=== PATIENT | male | born 1955 | race Caucasian/White ===

== ENCOUNTER → 2023-03-13 10:12 | Outpatient (BNVA) | payer MEDICARE, OTHER, SELFPAY | PROVIDERS: Referring Provider Family Medicine; Visit Provider Dermatology | DX: C44.311 Basal cell carcinoma of skin of nose (principal); L57.0 Actinic keratosis; L81.4 Other melanin hyperpigmentation; L82.1 Other seborrheic keratosis | CPT/HCPCS: 11102; 17000; 99203 ==

== ENCOUNTER → 2023-04-01 09:34 | Outpatient (BNVA) | payer MEDICARE, OTHER, SELFPAY | PROVIDERS: Visit Provider Dermatology | DX: C44.311 Basal cell carcinoma of skin of nose (principal) | CPT/HCPCS: 13152; 17311 ==

== ENCOUNTER → 2023-04-10 10:28 | Outpatient (BNVA) | payer MEDICARE, OTHER, SELFPAY | PROVIDERS: Visit Provider Dermatology | DX: Z48.02 Encounter for removal of sutures (principal) | CPT/HCPCS: 99212 ==

== ENCOUNTER → 2024-04-12 11:38 | Outpatient (BNVA) | payer MEDICARE, OTHER, SELFPAY | PROVIDERS: Visit Provider Nurse Practitioner Family | DX: D48.5 Neoplasm of uncertain behavior of skin (principal); L57.0 Actinic keratosis; L81.4 Other melanin hyperpigmentation; D18.01 Hemangioma of skin and subcutaneous tissue; L82.1 Other seborrheic keratosis | CPT/HCPCS: 11102; 17000; 99213 ==

== ENCOUNTER → 2024-04-28 09:20 | Outpatient (BNVA) | payer MEDICARE, OTHER, SELFPAY | PROVIDERS: Visit Provider Dermatology | DX: C44.622 Squamous cell carcinoma of skin of right upper limb, including shoulder (principal) | CPT/HCPCS: 13121; 17313 ==

== ENCOUNTER 2024-05-28 20:06 | Emergency (ER) | payer MEDICARE, OTHER, SELFPAY ==
[2024-05-28] VITALS (38 sets, daily range): BP systolic 131–148; BP diastolic 75–82; PULSE 75–101; RESP 10–24; TEMP 36.7; O2SAT 86–97; BMI 28.1
--- NOTE | 2024-05-28 20:10 | CTR_ITS ---
PROCEDURE INFORMATION: Exam: CT Head Without Contrast Exam date and time: 05/28/2024 8:30 PM Age: 68 years old Clinical indication: Injury or trauma; Blunt trauma (contusions or hematomas); Patient HX: Near syncope with fall. C/O dizziness. ; Additional info: Fall, dizziness TECHNIQUE: Imaging protocol: Computed tomography of the head without contrast. Radiation optimization: All CT scans at this facility use at least one of these dose optimization techniques: automated exposure control; mA and/or kV adjustment per patient size (includes targeted exams where dose is matched to clinical indication); or iterative reconstruction. COMPARISON: No relevant prior studies available. RADIATION DOSE METRICS: Total DLP (mGy-cm): 1091.24 FINDINGS: Brain: [id number] generalized cortical volume loss. No hemorrhage. Periventricular and subcortical white matter hypodensities likely represent chronic small vessel ischemic changes. No mass effect. Cerebral ventricles: No ventriculomegaly. Paranasal sinuses: Patchy opacification of the ethmoid air cells. Mucous retention cysts in the right sphenoid sinus.. Mastoid air cells: Visualized mastoid air cells are well aerated. Bones: Unremarkable. No acute fracture. Soft tissues: Unremarkable. CT/CT head wo con* [id number] IMPRESSION: No acute intracranial abnormality.
[2024-05-28 20:32] LABS: Basophils # 0.1 10^3/uL (0.0-0.1); Basophils % 0.7 %; Eosinophils # 0.1 10^3/uL (0.0-0.8); Eosinophils % 0.9 %; Lymphocytes # 4.8 10^3/uL (0.8-4.8); Lymphocytes % 45.3 %; Mean Corpuscular HGB Conc 36.3 g/dL (30-55); Mean Corpuscular Hemoglobin 37.3 pg (27-33); Mean Corpuscular Volume 102.6 fl (82-101); Mean Platelet Volume 9.4 fL (7.4-10.4); Monocytes # 0.9 10^3/uL (0.2-0.9); Monocytes % 8.3 %; Neutrophils # 4.69 10^3/uL (1.8-7.7); Neutrophils % 44.3 %; Nucleated Red Blood Cells % 0 %; Platelet Count 224 10^3/cmm (157-399); Red Blood Count 5.07 10^6/uL (3.85-5.65); Red Cell Distribution Width 12.9 % (12.1-15.1); White Blood Count 10.57 10^3/uL (3.29-11.43)
[2024-05-28 20:43] LABS: Alanine Aminotransferase 24 U/L (0-41); Alcohol Level 217 mg/dL (0-10); Alkaline Phosphatase 83 U/L (40-130); Anion Gap 21.4 (5-19); Aspartate Amino Transferase 34 U/L (0-40); Blood Urea Nitrogen 5 mg/dL (8-23); Calcium 8.9 mg/dL (8.5-10.5); Carbon Dioxide 25 mmol/L (22-29); Chloride 83 mmol/L (98-107); Creatine Phosphokinase 79 U/L (39-308); Creatinine Clr Calc Pharmacy 90.3985; Globulin 3.7 g/dL (1.3-4.6); Glomerular Filtration Rate 96.1 mL/min (90-130); Glucose 107 mg/dL (65-115); Magnesium 1.9 mg/dL (1.7-2.3); Osmolality Calculated 262 mOsm/kg (285-295); Sodium 127 mmol/L (136-145); Total Bilirubin 0.5 mg/dL (0.15-1.2); Total Protein 7.7 g/dL (6.6-8.7)
[2024-05-28 20:44] LABS: Partial Thromboplastin Time 30.4 SECONDS (23.9-36.7)
[2024-05-28] MEDS: sodium chloride 0.9% 1,000 ML 999 ML IV (20:53)
[2024-05-28 20:54] LABS: Potassium 2.4 mmol/L (3.5-5.1)
[2024-05-28] MEDS: potassium chloride oral liq 20 mEq/15 mL UDC 40 MEQ PO (21:03)
[2024-05-28] MEDS: lidocaine 1% 5 ML in potassium chloride premix 100 ML 52.5 ML IV (21:04)
--- NOTE | 2024-05-28 21:30 | ED_ITS ---
HPI - Dizziness 2 General: Chief Complaint: Dizziness Stated Complaint: DIZZY Time Seen by Provider: 05/28/24 20:07 History of Present Illness: HPI Narrative: 68-year-old male who had been drinking a lcohol today. He evidently was outside, and fell to the ground. When he tried to get up, he was quite dizzy, noting that things were spinning. He was unable to get up, and laid on the ground for a couple of hours. On EMS arrival, when getting up to his knees, he started to vomit which she believes is due to the dizziness. He denies headache. No chest pain no other weakness or numbness. No trouble with language although his speech is slurred. Related Data Home Medications Medication Instructions Recorded Confirmed atenolol 25 mg tablet 25 mg 05/28/24 hydrochlorothiazide 25 mg tablet 25 mg 05/28/24 Allergies Allergy/AdvReac Type Severity Reaction Status Date / Time No Known Allergies Allergy Verified 05/28/24 20:12 [facility] ED 2 PFSH: Social History Smoking and tobacco/nicotine status: current every day tobacco/nicotine user Physical Exam 2 Const: COMMON NORMALS: no acute distress and alert GENERAL APPEARANCE: c ooperative and frail appearing (mildly); not ill appearing HENMT: COMMON NORMALS: normocephalic HEAD & SCALP: normocephalic FACE & SINUS: face symmetric; no ecchymosis and no erythema Eye: COMMON NORMALS: Equal, round and reactive pupils present and EOMs intact bilaterally PUPIL: Yes Equal, round and reactive pupils present Neck/C-Spine: GENERAL: Yes trachea midline Resp: COMMON NORMALS: normal respiratory effort, No use of accessory muscles and clear to auscultation bilaterally AUSCULTATION: clear to auscultation bilaterally Cardio: COMMON NORMALS: regular rate and regular rhythm RATE: regular rate RHYTHM: regular rhythm GI: COMMON NORMALS: Soft to palpation PALPATION: Yes Soft to palpation Extremity: NARRATIVE EXTREMITY EXAM: atrauamatic Neuro: SENSORIUM/ORIENTATION: Yes alert CRANIAL NERVES: Yes CN normal except as noted Course 2 Vital Signs: Vital signs: Vital Signs Temperature 98.0 F 05/28/24 20:07 Pulse Rate 71 05/29/24 01:53 Respiratory Rate 12 05/28/24 23:05 Blood Pressure 102/47 05/29/24 01:53 Pulse Oximetry 96 05/29/24 01:53 Oxygen Delivery Me thod Room Air 05/28/24 20:17 MDM - Dizziness Medical Decision Making His vitals been quite stable here. His speech is mildly slurred. He is obviously intoxicated on exam, although his neurological exam is completely nonfocal. His NIH score is 1 for slurring of speech. his potassium is 2.4, and is being repleted. He is being hydrated. His hemoglobin is 19. Head CT is negative. Other laboratory is benign after his potassium is repleted, we will get him up to walk to see how he does The patient walked without assistance. He is no longer dizzy. He is more sober now. Potassium is improved to 3.8, sodium is improved to 132. He will be allowed discharge. Return for worsening symptoms. Outpatient follow-up. He is encouraged to abstain from alcohol. Lab Data 05/28/24 19:40 05/28/24 23:[address] 05/28/24 20:10 IMPRESSION: No acute intracranial abnormality. Laboratory Results WBC 10.57 10^3/uL (3.29-11.43) 05/28/24 19:40 RBC 5.07 10^6/uL (3.85-5.65) 05/28/24 19:40 Hgb 18.90 g/dL (11.27-16.99) H 05/28/24 19:40 Hct 52.0 % (37-53) 05/28/24 19:40 MCV 102.6 fl (82-101) H 05/28/24 19:40 MCH 37.3 pg (27-33) H 05/28/24 19:40 MCHC 36.3 g/dL (30-55) 05/28/24 19:40 RDW 12.9 % (12.1-15.1) 05/28/24 19:40 Plt Count 224 10^3/cmm (157-399) 05/28/24 19:40 MPV 9.4 fL (7.4-10.4) 05/28/24 19:40 Neut % (Auto) 44.3 % 05/28/24 19:40 Lymph % (Auto) 45.3 % 05/28/24 19:40 Fleming % (Auto) 8.3 % 05/28/24 19:40 Eos % (Auto) 0.9 % 05/28/24 19:40 Baso % (Auto) 0.7 % 05/28/24 19:40 Neut # (Auto) 4.69 10^3/uL (1.8-7.7) 05/28/24 19:40 Lymph # (Auto) 4.8 10^3/uL (0.8-4.8) 05/28/24 19:40 Fleming # (Auto) 0.9 10^3/uL (0.2-0.9) 05/28/24 19:40 Eos # (Auto) 0.1 10^3/uL (0.0-0.8) 05/28/24 19:40 Baso # (Auto) 0.1 10^3/uL (0.0-0.1) 05/28/24 19:40 Nucleated RBC % (auto) 0 % 05/28/24 19:40 Nucleated RBCs # 0.0 /100WBC 05/28/24 19:40 PT 14.60 SECONDS (12.1-14.9) 05/28/24 19:40 INR 1.10 (0.8-1.2) 05/28/24 19:40 APTT 30.4 SECONDS (23.9-36.7) 05/28/24 19:40 Sodium 132 mmol/L (136-145) L 05/28/24 23:38 Potassium 3.8 mmol/L (3.5-5.1) 05/28/24 23:38 Chloride 95 mmol/L (98-107) L 05/28/24 23:38 Carbon Dioxide 22 mmol/L (22-29) 05/28/24 23:38 Anion Gap 18.8 (5-19) 05/28/24 23:38 BUN 4 mg/dL (8-23) L 05/28/24 23:38 Creatinine 0.8 mg/dL (0.7-1.2) 05/28/24 23:38 GFR Calculation 96.1 mL/min (90-130) 05/28/24 23:38 Glucose 133 mg/dL (65-115) H 05/28/24 23:38 Calculated Osmolality 273 mOsm/kg (285-295) L 05/28/24 23:38 Calcium 8.3 mg/dL (8.5-10.5) L 05/28/24 23:38 Magnesium 1.9 mg/dL (1.7-2.3) 05/28/24 19:40 Total Bilirubin 0.5 mg/dL (0.15-1.2) 05/28/24 19:40 AST 34 U/L (0-40) 05/28/24 19:40 ALT 24 U/L (0-41) 05/28/24 19:40 Alkaline Phosphatase 83 U/L (40-130) 05/28/24 19:40 Creatine Kinase 79 U/L (39-308) 05/28/24 19:40 Total Protein 7.7 g/dL (6.6-8.7) 05/28/24 19:40 Albumin 4.0 g/dL (3.5-5.2) 05/28/24 19:40 Globulin 3.7 g/dL (1.3-4.6) 05/28/24 19:40 Urine Color Yellow (Yellow) 05/28/24 21:35 Urine Appearance Clear (CLEAR) 05/28/24 21:35 Urine pH 5.5 (5-7) 05/28/24 21:35 Ur Specific [place] 1.005 (1.005-1.030) 05/28/24 21:35 Urine Protein Negative (Negative) 05/28/24 21:35 Urine Glucose (UA) Negative (Normal) 05/28/24 21:35 Urine Ketones Negative (Negative) 05/28/24 21:35 Urine Blood Negative (Negative) 05/28/24 21:35 Urine Nitrate Negative (Negative) 05/28/24 21:35 Urine Bilirubin Negative (Negative) 05/28/24 21:35 Urine Urobilinogen 0.2 mg/dL (Negative) 05/28/24 21:35 Ur Leukocyte Esterase Negative (Negative) 05/28/24 21:35 Urine RBC 0-2 /hpf (0-2) 05/28/24 21:35 Urine WBC 0-5 /hpf (0-5) 05/28/24 21:35 Ur Squamous Epith Cells 0-5 /hpf (0-5) 05/28/24 21:35 Amorphous Sediment Not Reportable 05/28/24 21:35 Urine Bacteria None seen /hpf (NONE) 05/28/24 21:35 Hyaline Casts 0.40 /lpf 05/28/24 21:35 Urine Opiates Screen Negative ng/mL (Negative) 05/28/24 21:35 Ur Barbiturates Screen Negative ng/mL (Negative) 05/28/24 21:35 Ur Phencyclidine Scrn Negative ng/mL (Negative) 05/28/24 21:35 Ur Amphetamines Screen Negative ng/mL (Negative) 05/28/24 21:35 U Benzodiazepines Scrn Negative ng/mL (Negative) 05/28/24 21:35 Urine Cocaine Screen Negative ng/mL (Negative) 05/28/24 21:35 U Marijuana (THC) Screen Negative ng/mL (Negative) 05/28/24 21:35 Ethyl Alcohol 145 mg/dL (0-10) H 05/28/24 23:38 All radiology interpretation(s) finalized by discharge Discharge Plan Discharge Patient Disposition: Home Clinical Impression: Vertigo, Alcohol intoxication, Hypokalemia Condition: Stable Prescriptions: No Action atenolol 25 mg tablet 25 mg hydrochlorothiazide 25 mg tablet 25 mg Discharge Orders: Discharge ED (Routine); Ordered 05/29/24 Ordered By: Pantera Gomez Referrals: Darion Ma [Primary Care Provider] - 1-3 days Patient Instructions: Vertigo (ED), Hypokalemia (ED), Alcohol Intoxication (ED), Opioid Safety, Pain Management Activity Restrictions/Additional Instructions: Your potassium was extremely low, requiring replacement. It should be rechecked at the beginning of next week avoid alcohol. It can worsen vertigo symptoms return for any problems. 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
[2024-05-28 21:46] LABS: Bilirubin Urine Negative (Negative); Blood Urine Negative (Negative); Glucose Urine UA Negative (Normal); Ketones Urine Negative (Negative); Leukocyte Esterase Urine Negative (Negative); Nitrate Urine Negative (Negative); Protein Urine Negative (Negative); Specific Gravity, Urine 1.005 (1.005-1.030); Urine Appearance Clear (CLEAR); Urine Color Yellow (Yellow); Urobilinogen Urine 0.2 mg/dL (Negative); pH Urine 5.5 (5-7)
[2024-05-28 21:51] LABS: Add Urine Microscopic? YES; Bacteria Urine None Seen /hpf; RBC Urine 0-2 /hpf (0-2); Squamous Epithelial Cell Urine 0-5 /hpf (0-5); WBC Urine 0-5 /hpf (0-5)
[2024-05-28 21:53] LABS: Amphetamines Screen Urine Negative (Negative); Barbiturates Screen Urine Negative (Negative); Benzodiazepines Screen Urine Negative (Negative); Cocaine Screen Urine Negative (Negative); Opiate Screen Urine Negative (Negative); PCP Screen Urine Negative (Negative); THC Screen Urine Negative (Negative)
[2024-05-28 23:57] LABS: Alcohol Level 145 mg/dL (0-10); Anion Gap 18.8 (5-19); Blood Urea Nitrogen 4 mg/dL (8-23); Calcium 8.3 mg/dL (8.5-10.5); Carbon Dioxide 22 mmol/L (22-29); Chloride 95 mmol/L (98-107); Creatinine Clr Calc Pharmacy 90.3985; Glomerular Filtration Rate 96.1 mL/min (90-130); Glucose 133 mg/dL (65-115); Osmolality Calculated 273 mOsm/kg (285-295); Potassium 3.8 mmol/L (3.5-5.1); Sodium 132 mmol/L (136-145)
[2024-05-29] VITALS (22 sets, daily range): BP systolic 100–131; BP diastolic 47–75; PULSE 66–93; O2SAT 93–98
== END 2024-05-29 01:58 | disposition home or self-care (01) ==
PROVIDERS: Emergency Provider Emergency Medicine; PCP Family Medicine
DX: R42 Dizziness and giddiness (principal); E87.6 Hypokalemia; F10.129 Alcohol abuse with intoxication, unspecified; Y90.6 Blood alcohol level of 120-199 mg/100 ml; Z72.0 Tobacco use
CPT/HCPCS: 36415; 70450; 80048; 80053; 80306; 80307; 81001; 82550; 83735; 85025; 85610; 85730; 96365; 96366; 99285; J3480; J7030